=== PATIENT | male | born 1975 | race African-American/Black ===

== ENCOUNTER 2018-08-26 13:46 | Emergency (ER) | payer MEDICARE, MEDICAID ==
[2018-08-26 14:13] LABS: Bilirubin Negative (Negative); Blood, Urine Negative (Negative); Clarity CLEAR (Clear); Glucose, Urine (Dipstick) Negative (Negative); Leukocyte Negative (Negative); Nitrite Negative (Negative); Protein, Urine (Dipstick) Trace mg/dL (Neg-Trace); Specific Gravity, Urine 1.021 (1.002-1.036); Urobilinogen 0.2 mg/dL (0.2-1.0)
[2018-08-26 14:37] LABS: #Eosinphils 0.1 thou/uL (0.0-0.7); #Lymphocytes 2.1 thou/uL (1.20-3.40); #Monocytes 0.5 thou/uL (0.11-0.59); #Neutrophils 5.2 thou/uL (1.40-6.50); %Basophils 0.4 % (0.0-1.0); %Eosinophils 0.7 % (0.0-10.0); %Lymphocytes 26.7 % (21.0-51.0); %Monocytes 6.5 % (0.0-10.0); %Neutrophils 65.7 % (42.0-75.0); Hemoglobin 14.2 g/dL (14.0-18.0); Mean Corpuscular HGB CONC 33.5 g/dL (32.0-36.0); Mean Corpuscular Volume 89.3 fL (78.0-98.0); Mean Platelet Volume 7.5 fL (7.4-10.4); Platelet Count 298 thou/uL (130-400); RBC Distribution Width 12.6 % (11.5-14.5); Red Blood Cell (RBC) Count 4.73 mill/uL (4.70-6.10); White Blood Cell (WBC) Count 7.9 thou/uL (4.8-10.8)
[2018-08-26 15:08] LABS: ALT (SGPT) 44 U/L (8-55); AST (SGOT) 32 U/L (5-34); Albumin 4.5 g/dL (3.5-5.0); Alkaline Phosphatase 82 U/L (40-150); Anion Gap 11 mmol/L (10-20); Bilirubin, Total 0.4 mg/dL (0.2-1.2); Calc. Creatinine Clearance 0 mL/min (70-130); Calcium 9.6 mg/dL (7.8-10.44); Carbon Dioxide 27 mmol/L (22-29); Chloride 107 mmol/L (98-107); Estimated GFR-MDRD 76; Globulin 3.3 g/dL (2.4-3.5); Glucose 82 mg/dL (70-105); Potassium 4.3 mmol/L (3.5-5.1); Protein, Total 7.8 g/dL (6.0-8.3); Sodium 141 mmol/L (136-145)
[2018-08-26 15:46] LABS: BUN (Urea Nitrogen) 11 mg/dL (8.9-20.6)
[2018-08-26] MEDS ORDERED: Ibuprofen 200 MG TAB ONE (15:51)
--- NOTE | 2018-08-26 16:00 | ULT ---
ULTRASOUND RENAL: DATE: 08/26/2018 HISTORY: 33-year-old male with right flank pain FINDINGS: Right kidney: 14.5 x 8.5 x 7.5 cm. Left kidney: 10.5 x 6.5 x 4.5 cm. There is moderate to severe dilation of the right renal collecting system. No hydronephrosis of left kidney. Normal appearance of urinary bladder. Bilateral ureteral jets visualized. IMPRESSION: Right-sided obstructive uropathy, with moderate to severe right hydronephrosis.
[2018-08-26] MEDS ORDERED: Morphine 4 MG/ML VIAL ONE (16:08)
[2018-08-26] MEDS ORDERED: Ondansetron ODT 4 MG TAB ONE (16:15)
[2018-08-26] MEDS ORDERED: diphenhydrAMINE 25 MG CAP ONE (16:15)
== END 2018-08-26 16:55 | disposition home or self-care (01) ==
LOC: ERS 13:46
DX: N13.2 Hydronephrosis with renal and ureteral calculous obstruction (principal); Z79.899 Other long term (current) drug therapy
CPT/HCPCS: 36415; 76770; 80053; 81003; 85025; 96374; J2270; Q0162; Q0163

== ENCOUNTER 2019-08-05 17:44 | Emergency (ER) | payer SELFPAY ==
[2019-08-05] MEDS ORDERED: Acetaminophen 500 MG TAB ONE (18:18)
[2019-08-05] MEDS ORDERED: Morphine 4 MG/ML VIAL ONE (18:18)
[2019-08-05] MEDS ORDERED: diphenhydrAMINE 50 MG/ML VIAL ONE ×2 (18:41→20:20)
[2019-08-05 18:58] LABS: ALT (SGPT) 53 U/L (8-55); AST (SGOT) 36 U/L (5-34); Albumin 4.7 g/dL (3.5-5.0); Alkaline Phosphatase 85 U/L (40-110); Anion Gap 13 mmol/L (10-20); BUN (Urea Nitrogen) 13 mg/dL (8.9-20.6); Bilirubin, Total 0.5 mg/dL (0.2-1.2); Calc. Creatinine Clearance 0 mL/min (70-130); Carbon Dioxide 27 mmol/L (22-29); Chloride 106 mmol/L (98-107); Estimated GFR-MDRD 87; Globulin 3.3 g/dL (2.4-3.5); Glucose 77 mg/dL (70-105); Potassium 3.7 mmol/L (3.5-5.1); Sodium 142 mmol/L (136-145)
[2019-08-05 19:10] LABS: #Basophils 0.1 thou/uL (0.0-0.2); #Eosinphils 0.1 thou/uL (0.0-0.7); #Lymphocytes 2.5 thou/uL (1.20-3.40); #Monocytes 0.8 thou/uL (0.11-0.59); #Neutrophils 6.7 thou/uL (1.40-6.50); %Basophils 0.8 % (0.0-1.0); %Eosinophils 0.6 % (0.0-10.0); %Lymphocytes 24.6 % (21.0-51.0); %Monocytes 7.9 % (0.0-10.0); %Neutrophils 66.2 % (42.0-75.0); Mean Corpuscular HGB CONC 32.8 g/dL (32.0-36.0); Mean Corpuscular Hemoglobin 29.4 pg (27.0-31.0); Mean Corpuscular Volume 89.8 fL (78.0-98.0); Mean Platelet Volume 7.9 fL (7.4-10.4); Platelet Count 326 thou/uL (130-400); RBC Distribution Width 12.7 % (11.5-14.5); White Blood Cell (WBC) Count 10.1 thou/uL (4.8-10.8)
--- NOTE | 2019-08-05 19:47 | CT ---
CT ABDOMEN AND PELVIS WITHOUT IV CONTRAST: 08/05/19 INDICATIONS: Right flank pain. Correlation made to a prior renal ultrasound exam of 08/26/18. That exam demonstrated right hydronephr osis. No other comparison studies. FINDINGS: Lung bases clear. Liver, spleen, and pancreas unremarkable. Adrenal glands normal. There is severe right hydronephrosis. There are three or four nonobstructing calculi in the lower deidre e collecting structures of the right kidney. The right ureter is not dilated and the findings appear to represent a right UPJ obstruction of uncer tain etiology. There is no ureteral calculus identified. The left kidney and left collecting struct ures are unremarkable. The urinary bladder is minimally distended but appears unremarkable. Small bowel loops are normal caliber. Appendix normal. Colon unremarkable. Aorta normal caliber. No adenopathy or free fluid. IMPRESSION: Severe right hydronephrosis due to what appears to be a right UPJ obstruction of uncertain etiology. There are nonobstructing calculi in the lower pole collecting structures of the right kidney. Recommend urologic consultation and consider retrograde study for further evaluation. POS: [facility]
[2019-08-05 20:18] LABS: Bilirubin Negative (Negative); Blood, Urine Negative (Negative); Clarity Clear (Clear); Glucose, Urine (Dipstick) Normal (Negative); Leukocyte Negative Leu/uL (Negative); Nitrite Negative (Negative); Protein, Urine (Dipstick) 20 mg/dL (Neg-Trace); Urobilinogen Normal mg/dL (Less than 2)
== END 2019-08-05 21:22 | disposition home or self-care (01) ==
LOC: ERS 17:44
DX: R10.9 Unspecified abdominal pain (principal); R30.0 Dysuria; Z79.899 Other long term (current) drug therapy; Z87.442 Personal history of urinary calculi
CPT/HCPCS: 74176; 80053; 81003; 85025; 96374; 96375; 96376; J1200; J2270

== ENCOUNTER 2019-08-10 12:34 | Emergency (ER) | payer SELFPAY ==
[2019-08-10 13:26] LABS: Bacteria/HPF None Seen HPF (None Seen); Bilirubin Negative (Negative); Blood, Urine 1+ (Negative); Clarity Clear (Clear); Glucose, Urine (Dipstick) Normal (Negative); Leukocyte Negative Leu/uL (Negative); Nitrite Negative (Negative); Protein, Urine (Dipstick) 20 mg/dL (Neg-Trace); Squamous Epithelial None Seen HPF (0-3); Urobilinogen Normal mg/dL (Less than 2); WBC/HPF 0-3 HPF (0-3)
[2019-08-10] MEDS ORDERED: Fentanyl 100 MCG/2 ML VIAL ONE (13:26)
[2019-08-10] MEDS ORDERED: Ondansetron PF 4 MG/2 ML Vial ONE (13:26)
[2019-08-10 13:37] LABS: #Eosinphils 0.1 thou/uL (0.0-0.7); #Monocytes 0.5 thou/uL (0.11-0.59); #Neutrophils 5.2 thou/uL (1.40-6.50); %Basophils 0.3 % (0.0-1.0); %Eosinophils 0.8 % (0.0-10.0); %Lymphocytes 25.9 % (21.0-51.0); %Neutrophils 67.1 % (42.0-75.0); Hemoglobin 15.1 g/dL (14.0-18.0); Mean Corpuscular HGB CONC 33.1 g/dL (32.0-36.0); Mean Corpuscular Volume 87.7 fL (78.0-98.0); Mean Platelet Volume 7.7 fL (7.4-10.4); Platelet Count 312 thou/uL (130-400); RBC Distribution Width 12.5 % (11.5-14.5); Red Blood Cell (RBC) Count 5.22 mill/uL (4.70-6.10); White Blood Cell (WBC) Count 7.8 thou/uL (4.8-10.8)
[2019-08-10] MEDS ORDERED: diphenhydrAMINE 25 MG CAP ONE (13:46)
[2019-08-10 14:08] LABS: ALT (SGPT) 51 U/L (8-55); AST (SGOT) 29 U/L (5-34); Albumin 4.7 g/dL (3.5-5.0); Alkaline Phosphatase 84 U/L (40-110); Anion Gap 11 mmol/L (10-20); BUN (Urea Nitrogen) 15 mg/dL (8.9-20.6); Bilirubin, Total 0.6 mg/dL (0.2-1.2); Calc. Creatinine Clearance 0 mL/min (70-130); Calcium 9.9 mg/dL (7.8-10.44); Carbon Dioxide 26 mmol/L (22-29); Chloride 106 mmol/L (98-107); Estimated GFR-MDRD 79; Globulin 3.1 g/dL (2.4-3.5); Glucose 95 mg/dL (70-105); Potassium 4.2 mmol/L (3.5-5.1); Protein, Total 7.8 g/dL (6.0-8.3); Sodium 139 mmol/L (136-145)
--- NOTE | 2019-08-10 14:10 | ULT ---
RENAL ULTRASOUND: DATE: 08/10/2019. COMPARISON: 08/26/2018. HISTORY: Right-sided flank pain, history of renal problems. TECHNIQUE: Multiplanar, garcia scale sonographic imaging of the kidneys and urinary bladder obtained. FINDINGS: The right kidney is enlarged, measuring 14.4 x 6.2 x 5.7 cm. As seen on recent CT examination perfor med 08/05/2019, there is a moderate degree of right-sided hydronephrosis with dilation of the right re nal pelvis which suggests right UPJ obstruction, better assessed on prior CT. There were multiple no nobstructing calculi within the lower pole of the right kidney on recent CT examination which are not well assessed on this examination secondary to technique. The left kidney measures 10.7 x 6.2 x 5.1 cm with no stone, hydronephrosis, or mass on the left. The urinary bladder is decompressed and poorly assessed, with a volume of approximately 10 cc. IMPRESSION: Hydronephrosis on the right, better assessed on recent CT performed 08/05/2019. No left-sided hydrone phrosis. POS: [facility]
== END 2019-08-10 15:10 | disposition home or self-care (01) ==
LOC: ERS 12:34
DX: N13.2 Hydronephrosis with renal and ureteral calculous obstruction (principal); R11.2 Nausea with vomiting, unspecified; Z87.448 Personal history of other diseases of urinary system
CPT/HCPCS: 76770; 80053; 81003; 81015; 85025; 87086; 96361; 96374; 96375; 96376; J2405; J3010; Q0163

== ENCOUNTER 2019-08-29 15:17 | Emergency (ER) | payer BC, MEDICARE ==
[2019-08-29 16:21] LABS: #Lymphocytes 1.5 thou/uL (1.20-3.40); #Monocytes 0.5 thou/uL (0.11-0.59); #Neutrophils 4.8 thou/uL (1.40-6.50); %Basophils 0.6 % (0.0-1.0); %Eosinophils 0.5 % (0.0-10.0); %Lymphocytes 22.2 % (21.0-51.0); %Monocytes 6.7 % (0.0-10.0); Hemoglobin 14.5 g/dL (14.0-18.0); Mean Corpuscular HGB CONC 31.7 g/dL (32.0-36.0); Mean Corpuscular Hemoglobin 28.7 pg (27.0-31.0); Mean Corpuscular Volume 90.5 fL (78.0-98.0); Platelet Count 308 thou/uL (130-400); RBC Distribution Width 12.7 % (11.5-14.5); Red Blood Cell (RBC) Count 5.06 mill/uL (4.70-6.10); White Blood Cell (WBC) Count 6.9 thou/uL (4.8-10.8)
[2019-08-29] MEDS ORDERED: HYDROmorphone 0.5 MG/0.5 ML SYRINGE ONE (16:24)
[2019-08-29 16:25] LABS: Bacteria/HPF None Seen HPF (None Seen); Bilirubin Negative (Negative); Blood, Urine Negative (Negative); Clarity Clear (Clear); Glucose, Urine (Dipstick) Normal (Negative); Leukocyte 25 Leu/uL (Negative); Nitrite Negative (Negative); Protein, Urine (Dipstick) 20 mg/dL (Neg-Trace); RBC/HPF 0-3 HPF (0-3); Squamous Epithelial 0-3 HPF (0-3); Urobilinogen Normal mg/dL (Less than 2); WBC/HPF 0-3 HPF (0-3)
[2019-08-29 16:41] LABS: ALT (SGPT) 48 U/L (8-55); AST (SGOT) 27 U/L (5-34); Albumin 4.5 g/dL (3.5-5.0); Alkaline Phosphatase 81 U/L (40-110); Anion Gap 11 mmol/L (10-20); BUN (Urea Nitrogen) 16 mg/dL (8.9-20.6); Bilirubin, Total 0.5 mg/dL (0.2-1.2); Calc. Creatinine Clearance 0 mL/min (70-130); Calcium 9.1 mg/dL (7.8-10.44); Carbon Dioxide 27 mmol/L (22-29); Chloride 104 mmol/L (98-107); Estimated GFR-MDRD 81; Globulin 3.3 g/dL (2.4-3.5); Glucose 121 mg/dL (70-105); Lipase 65 U/L (8-78); Potassium 3.7 mmol/L (3.5-5.1); Protein, Total 7.8 g/dL (6.0-8.3); Sodium 138 mmol/L (136-145)
== END 2019-08-29 17:43 | disposition home or self-care (01) ==
LOC: ERS 15:17
DX: R10.9 Unspecified abdominal pain (principal); Z79.899 Other long term (current) drug therapy
CPT/HCPCS: 80053; 81003; 81015; 83690; 85025; 96374; J1170

== ENCOUNTER 2019-09-17 18:00 | Emergency (ER) | payer BC, MEDICARE ==
[2019-09-17 18:37] LABS: #Basophils 0.1 thou/uL (0.0-0.2); #Eosinphils 0.1 thou/uL (0.0-0.7); #Lymphocytes 2.3 thou/uL (1.20-3.40); #Monocytes 0.6 thou/uL (0.11-0.59); #Neutrophils 6.3 thou/uL (1.40-6.50); %Basophils 0.9 % (0.0-1.0); %Eosinophils 1.2 % (0.0-10.0); %Lymphocytes 24.3 % (21.0-51.0); %Monocytes 6.2 % (0.0-10.0); %Neutrophils 67.3 % (42.0-75.0); Hemoglobin 14.4 g/dL (14.0-18.0); Mean Corpuscular Hemoglobin 28.6 pg (27.0-31.0); Mean Corpuscular Volume 89.5 fL (78.0-98.0); Mean Platelet Volume 7.8 fL (7.4-10.4); Platelet Count 323 thou/uL (130-400); RBC Distribution Width 12.9 % (11.5-14.5); Red Blood Cell (RBC) Count 5.01 mill/uL (4.70-6.10); White Blood Cell (WBC) Count 9.3 thou/uL (4.8-10.8)
[2019-09-17 18:59] LABS: ALT (SGPT) 39 U/L (8-55); AST (SGOT) 35 U/L (5-34); Albumin 4.3 g/dL (3.5-5.0); Alkaline Phosphatase 83 U/L (40-110); Anion Gap 13 mmol/L (10-20); BUN (Urea Nitrogen) 17 mg/dL (8.9-20.6); Bilirubin, Total 0.3 mg/dL (0.2-1.2); Calc. Creatinine Clearance 0 mL/min (70-130); Calcium 9.4 mg/dL (7.8-10.44); Carbon Dioxide 21 mmol/L (22-29); Chloride 108 mmol/L (98-107); Estimated GFR-MDRD 89; Globulin 3.6 g/dL (2.4-3.5); Glucose 78 mg/dL (70-105); Protein, Total 7.9 g/dL (6.0-8.3); Sodium 138 mmol/L (136-145)
== END 2019-09-17 18:31 | disposition left against medical advice (07) ==
LOC: ERS 18:00
DX: Z53.21 Procedure and treatment not carried out due to patient leaving prior to being seen by health care provider (principal)
CPT/HCPCS: 36415; 80053; 85025

== ENCOUNTER 2019-09-22 20:09 | Emergency (ER) | payer BC, MEDICARE, SELFPAY ==
[2019-09-22 21:40] LABS: Bacteria/HPF None Seen HPF (None Seen); Bilirubin Negative (Negative); Blood, Urine Negative (Negative); Clarity Clear (Clear); Glucose, Urine (Dipstick) Normal (Negative); Leukocyte Negative Leu/uL (Negative); Nitrite Negative (Negative); Protein, Urine (Dipstick) 30 mg/dL (Neg-Trace); RBC/HPF 0-3 HPF (0-3); Squamous Epithelial None Seen HPF (0-3); Urobilinogen Normal mg/dL (Less than 2); WBC/HPF 0-3 HPF (0-3)
[2019-09-22] MEDS ORDERED: Fentanyl 100 MCG/2 ML VIAL ONE (22:04)
[2019-09-22] MEDS ORDERED: Ondansetron PF 4 MG/2 ML Vial ONE (22:04)
[2019-09-22 22:08] LABS: #Basophils 0.1 thou/uL (0.0-0.2); #Eosinphils 0.1 thou/uL (0.0-0.7); #Lymphocytes 2.4 thou/uL (1.20-3.40); #Monocytes 0.8 thou/uL (0.11-0.59); #Neutrophils 6.3 thou/uL (1.40-6.50); %Eosinophils 0.8 % (0.0-10.0); %Lymphocytes 25.1 % (21.0-51.0); %Monocytes 7.9 % (0.0-10.0); %Neutrophils 65.3 % (42.0-75.0); Hemoglobin 14.3 g/dL (14.0-18.0); Mean Corpuscular HGB CONC 32.9 g/dL (32.0-36.0); Mean Corpuscular Hemoglobin 29.4 pg (27.0-31.0); Mean Corpuscular Volume 89.3 fL (78.0-98.0); Mean Platelet Volume 7.7 fL (7.4-10.4); Platelet Count 313 thou/uL (130-400); RBC Distribution Width 12.8 % (11.5-14.5); Red Blood Cell (RBC) Count 4.84 mill/uL (4.70-6.10); White Blood Cell (WBC) Count 9.6 thou/uL (4.8-10.8)
[2019-09-22 22:30] LABS: ALT (SGPT) 39 U/L (8-55); AST (SGOT) 31 U/L (5-34); Albumin 4.5 g/dL (3.5-5.0); Alkaline Phosphatase 78 U/L (40-110); Anion Gap 13 mmol/L (10-20); BUN (Urea Nitrogen) 16 mg/dL (8.9-20.6); Bilirubin, Total 0.3 mg/dL (0.2-1.2); CK (CPK) 1016 U/L (30-200); Calc. Creatinine Clearance 0 mL/min (70-130); Calcium 9.7 mg/dL (7.8-10.44); Carbon Dioxide 24 mmol/L (22-29); Chloride 108 mmol/L (98-107); Estimated GFR-MDRD 82; Globulin 3.3 g/dL (2.4-3.5); Glucose 82 mg/dL (70-105); Lipase 57 U/L (8-78); Potassium 3.6 mmol/L (3.5-5.1); Protein, Total 7.8 g/dL (6.0-8.3); Sodium 141 mmol/L (136-145)
--- NOTE | 2019-09-22 22:43 | CT ---
CT Stone Protocol 09/22/2019 9:51 PM HISTORY: Recent lithotripsy for renal stones. Gradually worsening nausea and vomiting as well as abdominal dis tention. Urinary urgency/frequency. Fever. COMPARISON: 08/05/2019 Technique: Multiple contiguous axial CT images are obtained through the abdomen and pelvis without IV contrast. Coronal reformats are provided. FINDINGS: This examination is limited for the evaluation of solid organs and vascular structures due to the lac k of intravenous contrast. Lower Chest: Lung bases are clear. Abdomen: Liver: Grossly normal non-enhanced CT appearance. Gallbladder: Within normal limits for CT imaging. Pancreas: Grossly normal nonenhanced CT appearance. Spleen: Grossly normal nonenhanced CT appearance. Adrenals: Grossly normal nonenhanced CT appearance. Kidneys: Left kidney demonstrates a normal nonenhanced CT appearance, and no left renal calculus is p resent. Lower pole nonobstructing right renal calculi are again seen. There is persistent severe right hydronephrosis. Right ureter is again not dilated, and findings may be related to a right UPJ t ype obstruction. Degree of hydronephrosis is similar to the prior study. Right hydronephrosis was also seen on ultrasound examination on 08/26/2018. No perinephric inflammatory changes are seen. Ureters: No ureteral calculus is seen.. Pelvis: Urinary bladder: within normal limits. Reproductive Organs: No pelvic masses. Lymph Nodes: No enlarged lymph nodes. Bowel: A few colonic diverticula are seen. Loops of small bowel are normal in caliber. Appendix: The appendix is normal in caliber. Peritoneum: No free fluid, free air, or fluid collection. Retroperitoneum: within normal limits. Vessels: Abdominal aorta is normal in caliber.. Abdominal Wall: within normal limits. Bones: Degenerative changes are again seen at the lumbosacral junction. Bilateral pars defects are se en with trace grade 1 anterolisthesis of L5 on S1 similar to prior exam. IMPRESSION: 1. Persistent severe right hydronephrosis. Again, the right ureter is not dilated and findings are [place] ggestive of a right UPJ type obstruction. No perinephric inflammatory changes are seen. There is slight stranding adjacent to the right UPJ which is a stable finding and of uncertain etiology could be related to mild scarring. 2. Nonobstructing right renal calculi. 3. No left renal or ureteral calculus is seen. 4. Spondylolisthesis lumbosacral junction.
== END 2019-09-22 23:24 | disposition home or self-care (01) ==
LOC: ERS 20:09
DX: R10.9 Unspecified abdominal pain (principal); R11.0 Nausea
CPT/HCPCS: 36415; 74176; 80053; 81003; 81015; 82550; 83690; 85025; 96361; 96374; 96375; J2405; J3010

== ENCOUNTER 2019-10-05 21:34 | Emergency (ER) | payer MEDICARE ==
[2019-10-05 22:07] LABS: #Lymphocytes 2.1 thou/uL (1.20-3.40); #Monocytes 0.8 thou/uL (0.11-0.59); #Neutrophils 5.9 thou/uL (1.40-6.50); %Basophils 0.4 % (0.0-1.0); %Eosinophils 0.5 % (0.0-10.0); %Monocytes 8.5 % (0.0-10.0); %Neutrophils 66.5 % (42.0-75.0); Hemoglobin 14.4 g/dL (14.0-18.0); Mean Corpuscular HGB CONC 33.4 g/dL (32.0-36.0); Mean Corpuscular Hemoglobin 29.7 pg (27.0-31.0); Mean Corpuscular Volume 88.8 fL (78.0-98.0); Mean Platelet Volume 7.9 fL (7.4-10.4); Platelet Count 317 thou/uL (130-400); RBC Distribution Width 12.8 % (11.5-14.5); Red Blood Cell (RBC) Count 4.84 mill/uL (4.70-6.10); White Blood Cell (WBC) Count 8.8 thou/uL (4.8-10.8)
[2019-10-05 22:11] LABS: Bilirubin Negative (Negative); Blood, Urine 1+ (Negative); Clarity Clear (Clear); Glucose, Urine (Dipstick) Normal (Negative); Leukocyte 250 Leu/uL (Negative); Mucous/LPF Rare LPF (<2+); Nitrite Negative (Negative); Protein, Urine (Dipstick) 30 mg/dL (Neg-Trace); Squamous Epithelial 0-3 HPF (0-3); Urobilinogen Normal mg/dL (Less than 2)
[2019-10-05 22:17] LABS: Bacteria/HPF 2+ HPF (None Seen)
[2019-10-05 22:30] LABS: ALT (SGPT) 46 U/L (8-55); AST (SGOT) 39 U/L (5-34); Albumin 4.4 g/dL (3.5-5.0); Alkaline Phosphatase 80 U/L (40-110); Anion Gap 15 mmol/L (10-20); BUN (Urea Nitrogen) 19 mg/dL (8.9-20.6); Bilirubin, Total 0.2 mg/dL (0.2-1.2); Calc. Creatinine Clearance 0 mL/min (70-130); Calcium 9.5 mg/dL (7.8-10.44); Carbon Dioxide 21 mmol/L (22-29); Chloride 109 mmol/L (98-107); Estimated GFR-MDRD 82; Globulin 3.4 g/dL (2.4-3.5); Glucose 101 mg/dL (70-105); Potassium 3.7 mmol/L (3.5-5.1); Protein, Total 7.8 g/dL (6.0-8.3); Sodium 141 mmol/L (136-145)
[2019-10-05] MEDS ORDERED: Morphine 10 MG/ML VIAL ONE (22:40)
== END 2019-10-05 23:57 | disposition home or self-care (01) ==
LOC: ERS 21:34
DX: N39.0 Urinary tract infection, site not specified (principal); N13.30 Unspecified hydronephrosis; R31.9 Hematuria, unspecified; Z87.442 Personal history of urinary calculi; Z79.899 Other long term (current) drug therapy
CPT/HCPCS: 36415; 80053; 81003; 81015; 85025; 87086; 93005; J2270